=== PATIENT | female | born 1990 | race Hispanic/Latino ===

== ENCOUNTER 2016-12-13 22:54 | Emergency (ER) | payer BC ==
[~2016-12-13] VITALS: Ht 172.7 cm; Wt 99.0 kg
[~2016-12-13 22:54] MED LIST: AUGMENTIN875TAB PO; BENZONATATE200 MG PO; CIPRO XR500 M2 PO; CIPROFLOXACN500 MG PO; DILAUDID 2MG2 MG/TAB; DOXYCYCL HYC100 MG PO; FLEXERIL5 MG PO; FLONASE NASAL50 MCG; IBUDONE PO; JUNEL PO; LIORESAL10 MG/TA1 PO; LOESTRIN 21 PO; MUCINEX600 MG PO; TRAMADOL HCL50 MG OR; ULTRAM50 M1 PO; ZOFRAN ODT4 MG PO
[2016-12-14 02:07] LABS: HEMATOCRIT 39.3 % (37.0-47.0); HEMOGLOBIN 13.3 g/dl (12.0-16.0); IMMATURE GRANULOCYTES 0.4 % (0.0-1.0); MEAN CELL VOLUME 82.7 fL CALC (80.0-100.0); MEAN CORPUSCULAR HGB CONC 33.8 g/L CALC (32.0-36.0); NEUT# 7.27 thou/uL (2.00-7.15); RED BLOOD COUNT 4.75 mill/uL (4.20-5.60); RED CELL DISTRI WIDTH 13.5 % (11.5-15.5)
[2016-12-14 02:10] LABS: ALBUMIN 4.3 g/dL (3.2-5.0); ALKALINE PHOSPHATASE 53 u/l (38-126); AMYLASE 47 u/l (30-110); ANION GAP 17 (6-22 (CALC)); BILIRUBIN, TOTAL 1.7 mg/dL (0.0-1.4); BUN 13 mg/dL (7-17); BUN/CREATININE RATIO 25 (12-20 (CALC)); CALCIUM 9.2 mg/dL (8.4-10.2); CARBON DIOXIDE 22 mmol/l (22-30); CHLORIDE 105 mmol/l (95-108); CREATININE 0.5 mg/dL (0.5-1.0); GFR > 60 ML/MIN (>=60 (CALC)); GFR FOR AFR.AMER. > 60 ML/MIN (>=60 (CALC)); GLUCOSE 101 mg/dL (65-105); LIPASE 34 u/l (23-300); SGOT/AST 24 u/l (14-36); SGPT/ALT 17 u/l (9-52); SODIUM 140 mmol/l (137-146); TOTAL PROTEIN 7.2 g/dL (6.3-8.2)
[2016-12-14 02:14] LABS: URINE BILIRUBIN - DIPSTICK NEGATIVE (NEGATIVE); URINE BLOOD DIPSTICK NEGATIVE (NEGATIVE); URINE CLARITY CLEAR; URINE COLOR YELLOW; URINE GLUCOSE - DIPSTICK NEGATIVE (NEGATIVE); URINE KETONE NEGATIVE (NEGATIVE); URINE LEUK ESTERASE NEGATIVE (NEGATIVE); URINE NITRITE - DIPSTICK NEGATIVE (Negative); URINE PROTEIN - DIPSTICK NEGATIVE (NEG-TRACE); URINE SPECIFIC GRAVITY 1.025; URINE UROBILINOGEN - DIPSTICK 0.2 E.U./dL (0.2)
[2016-12-14] MEDS ORDERED: PROTONIX40 MG PO ×2 (05:25→06:43)
[2016-12-14 05:30] VITALS: BP 143/81
== END 2016-12-14 05:30 | disposition home or self-care (01) | DRG 392 ==
LOC: ED 22:54
PROVIDERS: Emergency Medicine
DX: R10.13 Epigastric pain (principal); R11.0 Nausea

== ENCOUNTER 2016-12-16 16:04 | Emergency (ER) | payer BC ==
[~2016-12-16] VITALS: Ht 172.7 cm; Wt 90.0 kg
[~2016-12-16 16:04] MED LIST changes: +PROTONIX40 MG PO
[2016-12-16 17:16] LABS: HEMATOCRIT 36.2 % (37.0-47.0); HEMOGLOBIN 12.3 g/dl (12.0-16.0); IMMATURE GRANULOCYTES 0.4 % (0.0-1.0); MEAN CELL VOLUME 82.6 fL CALC (80.0-100.0); MEAN CORPUSCULAR HGB 28.1 pG CALC (26.0-32.0); NEUT# 4.49 thou/uL (2.00-7.15); RED BLOOD COUNT 4.38 mill/uL (4.20-5.60); RED CELL DISTRI WIDTH 13.5 % (11.5-15.5)
[2016-12-16 17:33] LABS: ALKALINE PHOSPHATASE 44 u/l (38-126); ANION GAP 13 (6-22 (CALC)); BILIRUBIN, TOTAL 1.6 mg/dL (0.0-1.4); BUN 11 mg/dL (7-17); BUN/CREATININE RATIO 18 (12-20 (CALC)); CALCIUM 8.8 mg/dL (8.4-10.2); CARBON DIOXIDE 27 mmol/l (22-30); CHLORIDE 104 mmol/l (95-108); CREATININE 0.6 mg/dL (0.5-1.0); GFR > 60 ML/MIN (>=60 (CALC)); GFR FOR AFR.AMER. > 60 ML/MIN (>=60 (CALC)); GLUCOSE 81 mg/dL (65-105); LIPASE 24 u/l (23-300); POTASSIUM 3.7 mmol/l (3.5-5.1); SGOT/AST 19 u/l (14-36); SGPT/ALT 24 u/l (9-52); SODIUM 141 mmol/l (137-146); TOTAL PROTEIN 6.9 g/dL (6.3-8.2)
[2016-12-16 17:42] LABS: MYOGLOBIN 27 ng/mL (0 - 62)
[2016-12-16] MEDS ORDERED: ZOFRAN ODT4 MG PO (18:07)
[2016-12-16] MEDS ORDERED: ANTIVERT PO (18:07)
[2016-12-16] MEDS ORDERED: DEXILANT30 MG PO (18:08)
[2016-12-16 18:38] LABS: URINE BILIRUBIN - DIPSTICK NEGATIVE (NEGATIVE); URINE BLOOD DIPSTICK TRACE-INTACT (NEGATIVE); URINE CLARITY CLEAR; URINE COLOR YELLOW; URINE GLUCOSE - DIPSTICK NEGATIVE (NEGATIVE); URINE KETONE NEGATIVE (NEGATIVE); URINE LEUK ESTERASE NEGATIVE (NEGATIVE); URINE NITRITE - DIPSTICK NEGATIVE (Negative); URINE PROTEIN - DIPSTICK NEGATIVE (NEG-TRACE); URINE SPECIFIC GRAVITY 1.025; URINE UROBILINOGEN - DIPSTICK 0.2 E.U./dL (0.2)
[2016-12-16 18:49] VITALS: BP 136/78
== END 2016-12-16 18:55 | disposition home or self-care (01) | DRG 149 ==
LOC: ED 16:04
PROVIDERS: Emergency Medicine
DX: R42 Dizziness and giddiness (principal); K21.9 Gastro-esophageal reflux disease without esophagitis; R10.13 Epigastric pain; K44.9 Diaphragmatic hernia without obstruction or gangrene
CPT/HCPCS: S0164

== ENCOUNTER 2017-11-12 18:50 | Emergency (ER) | payer BC ==
[~2017-11-12] VITALS: Ht 172.7 cm; Wt 97.2 kg
[~2017-11-12 18:50] MED LIST changes: +ANTIVERT PO; +DEXILANT30 MG PO
[2017-11-12 19:39] LABS: HEMATOCRIT 35.6 % (37.0-47.0); HEMOGLOBIN 12.1 g/dl (12.0-16.0); IMMATURE GRANULOCYTES 0.3 % (0.0-1.0); MEAN CELL VOLUME 83.4 fL CALC (80.0-100.0); MEAN CORPUSCULAR HGB 28.3 pG CALC (26.0-32.0); NEUT# 5.49 thou/uL (2.00-7.15); RED BLOOD COUNT 4.27 mill/uL (4.20-5.60); RED CELL DISTRI WIDTH 13.9 % (11.5-15.5)
[2017-11-12 19:44] LABS: URINE BILIRUBIN - DIPSTICK NEGATIVE (NEGATIVE); URINE BLOOD DIPSTICK SMALL (NEGATIVE); URINE COLOR YELLOW; URINE GLUCOSE - DIPSTICK NEGATIVE (NEGATIVE); URINE KETONE NEGATIVE (NEGATIVE); URINE NITRITE - DIPSTICK NEGATIVE (Negative); URINE PH 5.5 (4.5-8.0); URINE PROTEIN - DIPSTICK NEGATIVE (NEG-TRACE); URINE SPECIFIC GRAVITY 1.015; URINE UROBILINOGEN - DIPSTICK 0.2 E.U./dL (0.2)
[2017-11-12 19:48] LABS: ALBUMIN 4.1 g/dL (3.2-5.0); ALKALINE PHOSPHATASE 60 u/l (38-126); AMYLASE 42 u/l (30-110); ANION GAP 19 (6-22 (CALC)); BILIRUBIN, TOTAL 1.7 mg/dL (0.0-1.4); BUN 9 mg/dL (7-17); BUN/CREATININE RATIO 15 (12-20 (CALC)); CARBON DIOXIDE 22 mmol/l (22-30); CHLORIDE 103 mmol/l (95-108); CREATININE 0.6 mg/dL (0.5-1.0); GFR > 60 ML/MIN (>=60 (CALC)); GFR FOR AFR.AMER. > 60 ML/MIN (>=60 (CALC)); LIPASE 29 u/l (23-300); POTASSIUM 3.6 mmol/l (3.5-5.1); SGOT/AST 27 u/l (14-36); SGPT/ALT 44 u/l (9-52); SODIUM 140 mmol/l (137-146); TOTAL PROTEIN 7.4 g/dL (6.3-8.2)
[2017-11-12 19:57] LABS: URINE CLARITY TURBID; URINE LEUK ESTERASE SMALL (NEGATIVE)
[2017-11-12 20:12] LABS: URINE BACTERIA MODERATE hpf; URINE SQUAMOUS EPITHELIAL CELL FEW EPI/hpf (0-FEW)
[2017-11-12] MEDS ORDERED: CIPROFLOXACN500 MG PO (22:36)
[2017-11-12 22:48] VITALS: BP 140/86
== END 2017-11-12 22:48 | disposition home or self-care (01) | DRG 690 ==
LOC: ED 18:50
PROVIDERS: Emergency Medicine
DX: N39.0 Urinary tract infection, site not specified (principal); N83.202 Unspecified ovarian cyst, left side; R10.12 Left upper quadrant pain; R10.13 Epigastric pain; R11.2 Nausea with vomiting, unspecified; R19.7 Diarrhea, unspecified
CPT/HCPCS: Q9967; S0164